=== PATIENT | female | born 1990 | race American Indian/Alaskan Native ===

== ENCOUNTER 2019-07-10 11:17 | Emergency (ER) | payer SELFPAY ==
[2019-07-10] MEDS ORDERED: ONDANSETRON 4 MG/2 ML INJ ONE ×2 (12:03→14:56)
[2019-07-10] MEDS ORDERED: SODIUM CHLORIDE 0.9% 1000 ML 1,000 ML ONE (12:04)
[2019-07-10] MEDS ORDERED: ONDANSETRON 4 MG/2 ML INJ IV ONE ×2 (12:09→15:00)
[2019-07-10] MEDS ORDERED: SODIUM CHLORIDE 0.9% 1000 ML 1,000 ML IV ONE (12:10)
--- NOTE | 2019-07-10 12:27 | Emergency Department Report ---
HPI - General Chief Complaint: Nausea/Vomiting/Diarrhea Time Seen by Provider: 07/10/19 11:47 - HPI HPI: 28-year-old -[place] female presents to the emergency department with a complaint of nausea and vomiting since waking up this morning. She has since developed some upper abdominal discomfort. She denies any fever, constipation, diarrhea, dysuria, vaginal bleeding or discharge. No recent travel or sick contacts at home. She has not taken anything for symptoms prior to presentation. She denies any past medical history. ED Past Medical Hx - Past Medical History Previous Medical History?: Yes Additional medical history: vaginal delivery x 2 - Surgical History Past Surgical History?: Yes - Social History Smoking Status: Former Smoker - Medications Home Medications: Home Medications Medication Instructions Recorded Confirmed Last Taken Type Ibuprofen [Motrin 600 MG tab] 600 mg PO Q8H PRN #20 tablet 07/10/19 Unknown Rx Ondansetron [Zofran Odt] 4 mg PO Q8HR PRN #15 tab.rapdis 07/10/19 Unknown Rx ED Review of Systems ROS: Stated complaint: NAUSEA/VOMIT BLOOD Other details as noted in HPI Comment: All other systems reviewed and negative Constitutional: denies: chills, fever Eyes: denies: eye pain, vision change ENT: denies: ear pain, throat pain Respiratory: denies: cough, shortness of breath Cardiovascular: denies: chest pain, palpitations Gastrointestinal: abdominal pain, nausea, vomiting. denies: diarrhea, constipation Genitourinary: denies: dysuria, discharge Musculoskeletal: denies: back pain, arthralgia Skin: denies: rash, lesions Neurological: denies: headache, weakness Physical Exam - Physical Exam Vital Signs: Vital Signs 07/10/19 07/10/19 11:21 12:11 Temperature 97.5 F L 97.9 F Pulse Rate 87 95 H Respiratory 20 20 Rate Blood Pressure 130/64 132/86 [Right] O2 Sat by Pulse 100 95 Oximetry Physical Exam: GENERAL: The patient is well-developed well-nourished. HENT: Normocephalic. Atraumatic. Patient has moist mucous membranes. EYES: Extraocular motions are intact. NECK: Supple. Trachea is midline. CHEST/LUNGS: Clear to auscultation. There is no respiratory distress noted. HEART/CARDIOVASCULAR: Regular. There is no tachycardia. ABDOMEN: Abdomen is soft. Mild upper abdominal tenderness to palpation. No guarding. Patient has normal bowel sounds. There is no abdominal distention. SKIN: Skin is warm and dry. NEURO: The patient is awake, alert, and oriented. The patient is cooperative. The patient has no focal neurologic deficits. Normal speech. MUSCULOSKELETAL: There is no tenderness or deformity. There is no evidence of acute injury. ED Course Vital Signs 07/10/19 07/10/19 11:21 12:11 Temperature 97.5 F L 97.9 F Pulse Rate 87 95 H Respiratory 20 20 Rate Blood Pressure 130/64 132/86 [Right] O2 Sat by Pulse 100 95 Oximetry ED Medical Decision Making - Lab Data Result diagrams: 07/10/19 12:12 07/10/19 12:12 - Radiology Data Radiology results: report reviewed, image reviewed interpreted by me: Abdominal x-ray shows nonspecific nonobstructive bowel gas. CT abdomen pelvis w con INDICATION / CLINICAL INFORMATION: MAIN: Abd pain x1day [id number] 100ml. TECHNIQUE: All CT scans at this location are performed using CT dose reduction for ALARA by means of automated exposure control. COMPARISON: None available. FINDINGS: No free fluid is seen in the abdomen. The liver, spleen, kidneys, pancreas, adrenal glands and great vessels are normal. No enlarged mesenteric or retroperitoneal lymph nodes are seen. In the pelvis, no free fluid is seen. There is a 6 cm right adnexal cyst present with at least one septation. No enlarged lymph nodes are identified. The bladder and the appendix are normal. No significant skeletal abnormality is identified. IMPRESSION: 6 cm right adnexal cyst with at least one septation. Otherwise negative CT abdomen and pelvis - Medical Decision Making This patient presented with nausea vomiting that started this morning followed by some upper abdominal discomfort. She has some mild upper abdominal tenderness to palpation but otherwise the abdomen is soft, nondistended and nontoxic in appearance. Abdominal x-ray showed nonspecific nonobstructive bowel gas. The patient was given some IV fluid resuscitation, antiemetics and IV analgesia. When she continued to complain of moderate discomfort, a CT of the abdomen and pelvis with IV contrast was completed that shows a 6 cm right adnexal cyst but otherwise no other acute processes found. The patient was able to pass an oral challenge. Her vital signs been stable throughout her ED course. She appears safe for discharge home at this time. She has been given a prescription for antiemetics and anti-inflammatories, a referral for [facility] and primary care. She has been instructed to return to the emergency department with any worsening of her symptoms or any acute distress. Critical Care Time: No Critical care attestation.: If time is entered above; I have spent that time in minutes in the direct care of this critically ill patient, excluding procedure time. ED Disposition Clinical Impression: Adnexal cyst Abdominal pain Qualifiers: Abdominal location: unspecified location Qualified Code(s): R10.9 - Unspecified abdominal pain Nausea & vomiting Qualifiers: Vomiting type: unspecified Vomiting Intractability: non-intractable Qualified Code(s): R11.2 - Nausea with vomiting, unspecified Disposition: TO HOME OR SELFCARE Is pt being admited?: No Condition: Stable Instructions: Ovarian Cyst (ED), Acute Nausea and Vomiting (ED), Abdominal Pain (ED) Additional Instructions: Please follow-up with a primary care physician in the next few days. I am also giving you a referral for some local [facility] groups to follow-up regarding the adnexal cyst. Increase your oral rehydration. Return to the emergency department with any worsening of your symptoms or any acute distress. Prescriptions: Ibuprofen [Motrin 600 MG tab] 600 mg PO Q8H PRN #20 tablet PRN Reason: Pain Ondansetron [Zofran Odt] 4 mg PO Q8HR PRN #15 tab.rapdis PRN Reason: Nausea Referrals: [facility] [Primary Care Provider] - 3-5 Days LANIE IVORY MD [Staff Physician] - 3-5 Days [facility] [Provider Group] - 3-5 Days [facility] [Provider Group] - 3-5 Days Time of Disposition: 14:52
[2019-07-10 12:43] LABS: Basophils % (Auto) 0.3 % (0.0-1.8); Eosinophils % (Auto) 0.2 % (0.0-4.3); Hematocrit 38.5 % (30.3-42.9); Hemoglobin 13.1 gm/dl (10.1-14.3); Lymphocytes # (Auto) 0.9 K/mm3 (1.2-5.4); Lymphocytes % (Auto) 8.2 % (13.4-35.0); Mean Corpuscular HGB Conc 34 % (30-34); Mean Corpuscular Volume 91 fl (79-97); Monocytes # (Auto) 0.5 K/mm3 (0.0-0.8); Monocytes % (Auto) 4.4 % (0.0-7.3); Platelet Count 237 K/mm3 (140-440); Red Blood Count 4.23 M/mm3 (3.65-5.03); Red Cell Distribution Width 13.2 % (13.2-15.2)
[2019-07-10 12:48] LABS: Alanine Aminotransferase 23 units/L (7-56); Albumin 4.7 g/dL (3.9-5); BUN/Creatinine Ratio 9; Blood Urea Nitrogen 6 mg/dL (7-17); Calcium 9.5 mg/dL (8.4-10.2); Hemolysis Index 3
[2019-07-10] MEDS ORDERED: KETOROLAC 30 MG/1 ML INJ IV ONE (12:51)
[2019-07-10] MEDS ORDERED: MORPHINE 4 MG/1 ML INJ IV ONE (12:52)
[2019-07-10 13:37] LABS: Bacteria,Urine 1+ /HPF (Negative); Bilirubin,Urine NEG (Negative); Blood,Urine NEG (Negative); Color,Urine Yellow (Yellow); Protein,Urine <15 mg/dL mg/dL (Negative); Urobilinogen,Urine < 2.0 mg/dL (<2.0)
--- NOTE | 2019-07-10 13:55 | XRay Report ---
ABDOMEN 2 VIEWS INDICATION / CLINICAL INFORMATION: Abd pain. COMPARISON: None available. FINDINGS: Normal bowel gas pattern. No evidence of obstruction or pneumoperitoneum. Signer Name: Von Villa MD FACR Signed: 07/10/2019 1:50 PM Workstation Name: [id number]
--- NOTE | 2019-07-10 14:48 | Cat Scan Report ---
CT abdomen pelvis w con INDICATION / CLINICAL INFORMATION: MAIN: Abd pain x1day [id number] 100ml. TECHNIQUE: All CT scans at this location are performed using CT dose reduction for ALARA by means of automated e xposure control. COMPARISON: None available. FINDINGS: No free fluid is seen in the abdomen. The liver, spleen, kidneys, pancreas, adrenal glands and great vessels are normal. No enlarged mesenteric or retroperitoneal lymph nodes are seen. In the pelvis, no free fluid is seen. There is a 6 cm right adnexal cyst present with at least one se ptation. No enlarged lymph nodes are identified. The bladder and the appendix are normal. No signific ant skeletal abnormality is identified. IMPRESSION: 6 cm right adnexal cyst with at least one septation. Otherwise negative CT abdomen and pelvis Signer Name: Von Villa MD FACR Signed: 07/10/2019 2:44 PM Workstation Name: [id number]
[2019-07-10 14:59] VITALS: BP 138/78
== END 2019-07-10 15:00 | disposition home or self-care (01) ==
LOC: ED 11:17
DX: R10.10 Upper abdominal pain, unspecified (principal); R11.2 Nausea with vomiting, unspecified; J35.8 Other chronic diseases of tonsils and adenoids; Z87.891 Personal history of nicotine dependence
CPT/HCPCS: 36415; 74019; 74177; 80053; 81001; 83690; 84703; 85025; 96361; 96374; 96375; 96376; 99284; J1885; J2270; J2405; J7030; Q9967

== ENCOUNTER 2021-06-16 11:02 | Emergency (ER) | payer SELFPAY ==
[2021-06-16 11:15] VITALS: BP 100/68
--- NOTE | 2021-06-16 11:17 | Emergency Department Report ---
Blank Doc - Documentation Documentation: 30-year-old female presents with nausea and vomiting times several days. 1- This is a initial triage assessment/medical screening only. Full assessment and work-up will be completed once the patient is in proper hospital gown, ED bed and in a private room setting. This initial assessment/diagnostic orders/clinical plan/ treatment(s) is/are subject to change based on pt's health status, clinical progression and re-assessment by fellow clinical providers in the ED. Further treatment and workup at subsequent clinical providers discretion. Patient/guardians urged not to elope from ED as their condition may be serious if not clinically assessed and managed. 2-labs 3-UA The patient was evaluated in the emergency department for symptoms described in the history of present illness. He/she was evaluated in the context of the global COVID-19 pandemic, which necessitated consideration that the patient might be at risk for infection with the virus that causes COVID-19. Institutional protocols and algorithms that pertain to the evaluation of patients at risk for COVID-19 are in a state of rapid change based on information released by regulatory bodies including the CDC and federal and state organizations. These policies and algorithms were followed during the dorothy arias's care in the emergency department. Please note that these policies, procedures and recommendations changed on a rapid basis.
== END 2021-06-16 17:32 | disposition left against medical advice (07) ==
LOC: ED 11:02
DX: R11.2 Nausea with vomiting, unspecified (principal); Z53.21 Procedure and treatment not carried out due to patient leaving prior to being seen by health care provider

== ENCOUNTER 2021-09-18 17:43 | Emergency (ER) | payer SELFPAY | END 2021-09-18 18:00 | disposition left against medical advice (07) | LOC: ED 17:43 | DX: N89.8 Other specified noninflammatory disorders of vagina (principal); Z53.21 Procedure and treatment not carried out due to patient leaving prior to being seen by health care provider ==